=== PATIENT | female | born 1990 | race Caucasian/White ===

== ENCOUNTER 2017-07-30 14:24 | Emergency (ER) | payer OTHER ==
[~2017-07-30] VITALS: Ht 167.6 cm; Wt 84.2 kg
[2017-07-30] MEDS ORDERED: LIDOCAINE 1%, 20ML SQ ONE (15:00)
[2017-07-30 15:09] VITALS: BP 113/72
[2017-07-30] MEDS ORDERED: LIDOCAINE 1%, 20ML ONE (15:26)
== END 2017-07-30 16:58 | disposition home or self-care (01) ==
LOC: ED 16:00
DX: L02.215 Cutaneous abscess of perineum (principal); G43.909 Migraine, unspecified, not intractable, without status migrainosus
CPT/HCPCS: 56405

== ENCOUNTER 2017-08-01 18:17 | Emergency (ER) | payer OTHER ==
[~2017-08-01] VITALS: Ht 167.6 cm; Wt 85.0 kg
[2017-08-01 18:26] VITALS: BP 125/81
== END 2017-08-01 19:26 | disposition home or self-care (01) ==
LOC: ED 19:20
DX: Z48.01 Encounter for change or removal of surgical wound dressing (principal); G43.909 Migraine, unspecified, not intractable, without status migrainosus
CPT/HCPCS: 99282

== ENCOUNTER 2017-09-22 17:13 | Emergency (ER) | payer OTHER ==
[~2017-09-22] VITALS: Ht 167.6 cm; Wt 83.2 kg
[2017-09-22] MEDS ORDERED: SODIUM CHLORIDE 0.9% 1,000ML IVBOLUS ONE (18:00)
[2017-09-22] MEDS ORDERED: SODIUM CHLORIDE FLUSH 10ML SYR IVF ONE (18:00)
[2017-09-22 18:08] LABS: BASOPHILS # (AUTO) 0.02 x10^3/uL (0-0.1); BASOPHILS % (AUTO) 0 % (0-1); EOSINOPHILS # (AUTO) 0.07 x10^3/uL (0-0.4); EOSINOPHILS % (AUTO) 1 % (1-7); LYMPHOCYTES # (AUTO) 1.95 x10^3/uL (1-3.4); LYMPHOCYTES % (AUTO) 32 % (22-44); MD NO; MEAN CORPUSCULAR HEMOGLOBIN 30.7 pg (27.0-34.8); MEAN CORPUSCULAR HGB CONC 32.6 g/dL (32.4-35.8); MEAN CORPUSCULAR VOLUME 94.3 fL (80-100); MEAN PLATELET VOLUME 9.7 fL (7.4-10.4); MONOCYTES # (AUTO) 0.51 x10^3/uL (0.2-0.8); MONOCYTES % (AUTO) 8 % (2-9); NEUTROPHILS # (AUTO) 3.64 x10^3/uL (1.8-6.8); NEUTROPHILS % (AUTO) 59 % (42-75); PLATELET COUNT 246 x10^3/uL (130-400); RED BLOOD COUNT 4.28 x10^6/uL (3.82-5.3); RED CELL DISTRIBUTION WIDTH 14.8 % (9.6-15.2)
[2017-09-22 18:09] VITALS: BP 119/71
[2017-09-22 18:19] LABS: ALBUMIN 3.9 g/dL (3.4-5.0); ANION GAP 6 mmol/L (5-15); CALCIUM 8.5 mg/dL (8.5-10.1); CHLORIDE 106 mmol/L (98-107); CREATININE 0.63 mg/dL (0.55-1.02)
== END 2017-09-22 18:58 | disposition home or self-care (01) ==
LOC: ED 18:43
DX: N93.8 Other specified abnormal uterine and vaginal bleeding (principal)
CPT/HCPCS: 36415; 80048; 82040; 84703; 85025; 99284

== ENCOUNTER 2019-03-14 14:44 | Emergency (ER) | payer OTHER ==
[~2019-03-14] VITALS: Ht 170.2 cm; Wt 77.5 kg
[2019-03-14 14:46] VITALS: BP 125/81
[2019-03-14 15:28] LABS: ANION GAP 4 mmol/L (5-15); CALCIUM 8.7 mg/dL (8.5-10.1); CHLORIDE 110 mmol/L (98-107)
--- NOTE | 2019-03-14 15:50 | NUR ---
D/C INSTRUCTIONS, MEDS & F/U APPT RV'WD WITH PT, SHE VERBALIZES UNDERSTANDING. RX GIVEN X1. PT AMBULATED OUT OF ED WITHOUT DIFFICULTY.
== END 2019-03-14 16:04 | disposition home or self-care (01) ==
LOC: ED 15:53
DX: G43.909 Migraine, unspecified, not intractable, without status migrainosus (principal); L24.89 Irritant contact dermatitis due to other agents; X58.XXXA Exposure to other specified factors, initial encounter; Y93.89 Activity, other specified; Y92.89 Other specified places as the place of occurrence of the external cause; Y99.8 Other external cause status
CPT/HCPCS: 36415; 80048; 99283; Q0177